=== PATIENT | female | born 1935 | race Caucasian/White ===

== ENCOUNTER 2024-02-23 13:05 | Emergency (ER) | payer MEDICARE, BC, SELFPAY ==
[2024-02-23 13:12] VITALS: BP 169/76
[2024-02-23 13:15] VITALS: BP 169/76
--- NOTE | 2024-02-23 13:40 | ED.GENMED ---
Addendum entered and electronically signed by Shara Michael PA-C 02/26/24 09:21:
thakkar sensitive e coli urine culture on keflex, no treatment change
Original Note:
History of Present Illness
General
Chief Complaint: Change in Mental Status
Source: records, family and ambulance crew
Time Seen by Provider: 02/23/24 13:13
Travel History
Have you had any contact with someone who has COVID-19?: No
Do you have any symptoms of coronavirus? Fever > 100 degrees, chills, cough, shortness of breath, sore throat, loss of taste or smell, muscle aches, or headache?: No
History of Present Illness
History of Present Illness:
88-year-old female with past medical history of dementia presenting to the emergency department via EMS after reportedly being found on the floor this morning by . Patient is unsure as to exactly what happened. EMS reports that
states that patient is at her usual baseline mental status hayden and patient is without any specific concerns at this time. She denies any headache, vomiting, chest pain, abdominal pain, extremity related injury or any other concerns. History was
very limited from the patient due to reported current mental status.
Past History
Past History
ED Past Medical History: HTN and Other (Dementia)
ED Past Surgical History: Gynecological
Social History
Tobacco: Non-smoker
Alcohol: None
Drug: None
Personal:
Living: with family
Review of Systems
Review of Systems
All Other Systems: ROS reviewed and negative except as documented in HPI and ROS
Phy Exam
Physical Exam
Physical Exam:
GENERAL: Alert , in no apparent distress
HEAD: NCAT
EYE: clear conjunctiva
NECK: Supple,
ENT: o/p clr, mmm.
CARDIAC: Regular rate and rhythm , Systolic murmur left sternal border.
LUNGS: Clear breath sounds bilaterally, no acute respiratory distress, no wheezes/rales/rhonchi
ABDOMEN: Soft, without focal tenderness, no r/g, no cvat
NEUROLOGICAL: Alert and oriented to self and place but not time
SKIN: Warm and dry, skin intact.
MUSCULOSKELETAL: No edema, well perfused. Scattered abrasions however these appear older and not from today's fall. Moves all extremities without much difficulty. No focal tenderness over any joints or large bones.
PSYCH: Normal and appropriate interaction.
Scores
Heart Failure Risk
Heart Failure Risk Score: Not Applicable
Heart Score for Chest Pain Patients
STEMI patient?: Not applicable
Withdrawal Assessment of Alcohol
Withdrawal Assessment Completed?: Not applicable
Course
Orders/Labs/Results
Orders:
Orders
02/23/24 13:29
Electrocardiogram (*1) Urgent
Reason for Study: Other
Other Reason for Exam: AMS
CT Head W/o Iv Contrast Urgent
Comment:
Reason For Exam: found on ground, unclear etiology, ? fall
EKG- Treatment ONCE
02/23/24 13:39
Basic Metabolic Panel Urgent
Complete Blood Count/With Diff Urgent
02/23/24 14:24
Urinalysis Reflex To Culture Urgent
Date Specimen was Collected: 02/23/24
Time Specimen was Collected: 14:21
Urine Microscopic Reflex Cult Urgent
Urine Culture Urgent
SUSHILA Source: U
Specimen Description:
Date Specimen was Collected: 02/23/24
Time Specimen was Collected: 14:21
Abnormal Lab Results
02/23/24 02/23/24
13:39 14:24
RBC 4.06 L 10^6/uL
(4.20-5.40)
MCHC 32.9 L g/dL
(33.0-37.0)
MPV 11.1 H fL
(7.4-10.4)
Absolute Lymphs (auto) 0.8 L 10^3/uL
(1.2-3.4)
Lymphocytes % 17.0 L %
(20.5-51.1)
Monocytes % 9.8 H %
(1.7-9.3)
BUN 18 H mg/dl
(7-17)
Ur Occult Blood Reflex 2+ A
(Negative)
Urine Nitrite (Reflex) Positive A
(Negative)
Leukocyte Esterase Rfl 2+ A
(Negative)
Urine WBC (Reflex) >100 A /HPF
(0-5)
Urine Albumin (Reflex) 1+ A
(Neg - Trace)
02/23/24 13:39
02/23/24 13:39
Vital Signs
Initial and Last Documented VS:
Initial Vital Signs
Temp Pulse Resp BP Pulse Ox
98.0 F 70 18 169/76 95
02/23/24 13:12 02/23/24 13:12 02/23/24 13:12 02/23/24 13:12 02/23/24 13:12
Last Documented Vital Signs
Temp Pulse Resp BP Pulse Ox
98.0 F 74 16 163/90 97
02/23/24 13:12 02/23/24 14:02 02/23/24 14:02 02/23/24 14:01 02/23/24 14:02
MDM/Problems Addressed
Differential Diagnosis Includes:
Accidental fall, syncope, electrolyte disturbance, urinary tract infection, intracranial bleeding
MDM/Problems Addressed:
88-year-old female presenting emergency department after being found on the ground, unclear as to how patient ended up on the ground due to history of dementia. EMS reports that also seemed a little bit confused on scene and this is also
reportedly has been his baseline. Patient is without any specific concerns at this time. I contacted the patient's daughter, Maria Del Carmen, who confirmed that patient has a history of significant dementia and that with discussion with EMS and police
patient did seem to be at her baseline however due to the fall wanted the patient evaluated at the ER. She is on her way to the emergency department. In the meantime we will check labs, urine, CT of the head, EKG and reassess following.
Chronic conditions affecting care: Neurological disorder (Dementia)
*Pulse Oximetry
Patient hypoxic: no
*EKG
Interpreted by ED Provider?: Yes
Comparison EKG: no changes
Heart Rate: 71
Rate: normal
Rhythm: sinus
Ischemia: no ischemia
*Critical Care Note
Total Time (30-74mins, 75-104mins- exclusive of procedures): Not Applicable
Data Reviewed
Review of Other/Old Records Reveals: Labs and Testing
Source: records and family
Patient Management
Escalation/DeEscalation of care consider admission/obs:
Patient's labs and imaging are largely unremarkable. Urinalysis is nitrite positive, 2+ leukocytes and greater than 100 WBCs on urine. Will treat for a urinary tract infection. Based off previous culture patient had pansensitive E. coli UTI.
Prescription for Keflex given. Daughter notes that patient and her were arranged to go to an assisted living facility this coming Friday. Offered to case management if we could expedite this however the daughter declined. Notes another
family member is going to be visiting with the patient and her next few days. Aware of return precautions to the emergency department but otherwise stable for discharge home.
ED Attending Note
-
Portions of this chart may have been created with voice recognition software.� Occasional wrong word or��sound alike� substitutions may have occurred due to the inherent limitations of voice recognition software.
Discharge Plan
Departure
Patient Disposition: Home (Routine Discharge)
Date of Disposition: 02/23/24
Time of Disposition: 15:12
Patient with high blood pressure during this ER visit?: Yes
Discharge Problem:
Acute UTI, Accidental fall, Dementia
Instructions: Urinary Tract Infection, Adult (DC)
Prescriptions:
New
cephalexin 500 mg tablet
500 mg PO BID 10 Days Qty: 20 0RF
Interventions
Interventions:
*Risk Screen - Suicide Last Done: 02/23/24 13:12
*General Assessment Last Done: 02/23/24 13:12
*Neglect/Abuse Screening Last Done: 02/23/24 13:12
ED- Neurological Assessment Last Done: 02/23/24 14:11
Discharge Date and Time
Print Language: LATVIAN
[2024-02-23 13:53] LABS: % Basophils 0.6 % (0-2); % Eosinophils 1.7 % (0-6); % Immature Granulocytes 0.2 % (0-0.5); % Monocytes 9.8 % (1.7-9.3); % Neutrophils 70.7 % (42.2-75.2); Absolute Eosinophils 0.1 10^3/uL (0-0.7); Absolute Lymphocytes 0.8 10^3/uL (1.2-3.4); Absolute Monocytes 0.5 10^3/uL (0.1-0.6); Absolute Neutrophils 3.4 10^3/uL (1.4-6.5); Hematocrit 37.7 % (37.0-47.0); Hemoglobin 12.4 g/dL (12.0-16.0); Mean Corp Hgb Conc. 32.9 g/dL (33.0-37.0); Mean Corpuscular Hgb 30.5 pg (27.0-31.0); Mean Corpuscular Volume 92.9 fL (81.0-99.0); Mean Platelet Volume 11.1 fL (7.4-10.4); Nucleated Red Blood Cells % 0 %; Platelet Count 210 10^3/uL (130-400); Red Blood Cell Count 4.06 10^6/uL (4.20-5.40); Red Cell Dist. Width 13.5 % (11.5-14.5); White Blood Cell Count 4.8 10^3/uL (4.8-10.8)
[2024-02-23 14:01] VITALS: BP 163/90
[2024-02-23 14:07] LABS: Blood Urea Nitrogen 18 mg/dl (7-17); Calcium 9.6 mg/dl (8.4-10.2); Carbon Dioxide 29 mmol/L (22-30); Chloride 104 mmol/L (98-107); Glucose 92 mg/dl (70-99); Sodium 139 mmol/L (135-145); eGFR > 60.00
[2024-02-23 14:11] LABS: Potassium 3.7 mmol/L (3.5-5.1)
[2024-02-23 14:55] LABS: Urine Albumin 1+ (Neg - Trace); Urine Bilirubin Negative (Negative); Urine Character Slightly Cloudy (Clear); Urine Color Yellow; Urine Glucose Negative (Negative); Urine Ketone Negative (Negative); Urine Leukocyte 2+ (Negative); Urine Nitrite Positive (Negative); Urine Occult Blood 2+ (Negative); Urine Specific Gravity 1.015 (<1.030); Urine Urobilinogen Negative (Neg - 1+)
[2024-02-23 15:09] LABS: Urine White Cell >100 /HPF (0-5)
== END 2024-02-23 16:21 | disposition home or self-care (01) ==
LOC: EMR 13:05
PROVIDERS: Physician Assistant Medical; EMERGENCY PHYSICIAN Emergency Medicine; FAMILY PHYSICIAN Student in an Organized Health Care Education/Training Program
DX: N39.0 Urinary tract infection, site not specified (principal); F03.90 Unspecified dementia, unspecified severity, without behavioral disturbance, psychotic disturbance, mood disturbance, and anxiety; W19.XXXA Unspecified fall, initial encounter; R41.82 Altered mental status, unspecified; I10 Essential (primary) hypertension
CPT/HCPCS: 99284; 70450; 80048; 81003; 81015; 85025; 87077; 87086; 87186; 93005